=== PATIENT | female | born 1965 | race Caucasian/White ===

== ENCOUNTER 2016-02-28 17:13 | Emergency (ER) | payer OTHER ==
[~2016-02-28] VITALS: Ht 157.5 cm; Wt 121.7 kg
[~2016-02-28 17:13] MED LIST: ACID CONTROL150 MG PO; ALBUTEROL SULF8.5 GM IH; ALDACTONE100 MG PO; ALDACTONE50 MG PO; ATIVAN2 MG PO; ATROVENT 00.5 MG/2.5 IH; B-100 COMPLEX1 EACH PO; BAL B-1001 EACH PO; BENTYL20 MG PO; BIOTIN 5000MCG PO; CARAFATE1 GM PO; DESYREL100 MG PO; DICYCLOMINE HCL10 MG PO; DIFLUCAN150 MG PO; DOXYCYCLINE HY100 MG PO; DOXYCYCLINE MO100 MG PO; DRISDOL50000 UNIT PO; ERGOCALCIF50000 UNIT PO; ESTRACE2 MG PO; ESTRADIOL2 MG PO; FIORICET 50-301 EACH PO; FLUOXETINE HCL40 MG PO; GEMFIBROZIL600 MG PO; K-DUR20 MEQ PO; LEVAQUIN750 MG PO; LEVOFLOXACIN500 MG PO; LEVOTHYROXINE112 MCG PO; LEVOTHYROXINE125 MCG PO; LORAZEPAM1 MG PO; LOZOL2.5 MG PO; MAG-OXIDE400 MG PO; MAGNESIUM400 MG PO; MONODOX100 MG PO; MOTRIN800 MG PO; NASONEX17 GM BOTH NARES; NOVOLOG PE100 UNITS/ SC; PERCOCET 5/31 TABLET PO; PREDNISOLONE AC15 ML BOTH EYES; PREDNISONE20 MG PO; PREDNISONE50 MG PO; PROMETHAZINE HC25 M1 PO; PROZAC40 MG PO; PULMICORT FLE180 MCG IH; ROBITUSSIN AC,T10 ML PO; SUDAFED 12-HOU120 MG PO; SYNTHROID112 MCG PO; TRAZODONE HCL50 MG PO; ULTRAM50 MG PO; VIT B PO; VITAMIN B PO; VITAMIN B-2100 MG PO; VITAMIN D250000 UNIT PO; ZANTAC150 MG PO; ZINC50 M1 PO; ZOFRAN ODT8 MG PO; ZOFRAN4 MG PO; ZOFRAN8 MG PO; [UNRECOGNIZED DRUG - CODE] PO
[2016-02-28 18:04] LABS: HEMATOCRIT 43.4 % (36.0-46.0); MCH 28.6 PG (29.0-34.0); MCHC 33.4 G/DL (30.0-36.0); MCV 85.6 FL (83-99); MEAN PLAT.VOLUME 9.1 uM^3 (9.5-12.4); PLATELET COUNT 275 K/uL (156-360); RBC DIS.WIDTH-CV 13.5 % (11.8-14.6); RBC DIS.WIDTH-SD 41.5 % (39-53); RED BLOOD COUNT 5.07 M/uL (3.80-5.20); WHITE BLOOD COUNT 10.6 K/uL (4.1-10.2)
[2016-02-28] MEDS ORDERED: MONODOX100 MG PO (18:04)
[2016-02-28 18:10] LABS: CHLORIDE 98 mEq/L (99-109); SODIUM 139 mEq/L (136-147)
[2016-02-28 18:13] LABS: GLUCOSE 120 mg/dL (70-99)
[2016-02-28 18:14] LABS: ANION GAP 12 MEQ/L (2-14)
[2016-02-28 18:15] LABS: TOTAL BILIRUBIN 0.4 mg/dL (0.0-1.0)
[2016-02-28 18:16] LABS: ALKALINE PHOSPHATASE 85 IU/L (3-129); GFR ESTIMATE (CALCULATED) > 59 mL/min/
[2016-02-28 18:17] LABS: UREA NITROGEN (BUN) 15 mg/dL (9-23)
[2016-02-28 18:27] LABS: QUANTITATIVE HCG < 4.0 MIU/ML
[2016-02-28 18:52] LABS: LIPASE 23 U/L (1.0-51.0)
[2016-02-28 19:09] LABS: ADD MIUA? YES; BILIRUBIN NEGATIVE; BLOOD NEGATIVE; COLOR YELLOW ((YELLOW)); GLUCOSE (STRIP) NEGATIVE; KETONES TRACE; LEUKOCYTES NEGATIVE; NITRITE NEGATIVE; PROTEIN (STRIP) NEGATIVE; SPECIFIC GRAVITY 1.022 (1.000-1.030); UROBILINOGEN 0.2 MG/DL (0.2-1.0)
[2016-02-28 19:31] LABS: BACTERIA 1+; CASTS NONE SEEN /LPF; CRYSTALS NONE SEEN; EPITHELIAL CELLS 1+; MUCUS NONE SEEN; PATHOLOGICAL CAST NONE SEEN; SMALL ROUND CELL NONE SEEN; UCUL ADDED? NO; WHITE BLOOD CELLS 0-5 /HPF (0-5); YEAST-LIKE CELL NONE SEEN
[2016-02-28] MEDS ORDERED: ZOFRAN ODT4 MG PO (22:43)
[2016-02-28] MEDS ORDERED: TRAMADOL HCL50 MG PO (23:10)
[2016-02-28 23:42] VITALS: BP 105/66
== END 2016-02-28 23:59 | disposition home or self-care (01) ==
LOC: EXP 17:13 → EME 17:13 → EXP 23:59
DX: K52.9 Noninfective gastroenteritis and colitis, unspecified (principal); E78.5 Hyperlipidemia, unspecified; E11.9 Type 2 diabetes mellitus without complications; E03.9 Hypothyroidism, unspecified; Z87.442 Personal history of urinary calculi; Z88.1 Allergy status to other antibiotic agents; Z88.0 Allergy status to penicillin
CPT/HCPCS: 74177; 80053; 81003; 83690; 84702; 85027; 99281; 99285; J1170; J1200; J2405

== ENCOUNTER 2016-03-03 14:03 | Emergency (ER) | payer OTHER ==
[~2016-03-03] VITALS: Ht 157.5 cm; Wt 121.0 kg
[~2016-03-03 14:03] MED LIST changes: +TRAMADOL HCL50 MG PO; +ZOFRAN ODT4 MG PO
[2016-03-03 16:41] LABS: ADD MIUA? YES; BILIRUBIN NEGATIVE; BLOOD NEGATIVE; COLOR YELLOW ((YELLOW)); GLUCOSE (STRIP) NEGATIVE; KETONES NEGATIVE; LEUKOCYTES NEGATIVE; NITRITE NEGATIVE; PROTEIN (STRIP) TRACE; SPECIFIC GRAVITY 1.022 (1.000-1.030); UROBILINOGEN 0.2 MG/DL (0.2-1.0)
[2016-03-03 16:54] LABS: POINT-OF-CARE METER ID UU13113702
[2016-03-03 17:10] LABS: BACTERIA 3+; CASTS NONE SEEN /LPF; CRYSTALS NONE SEEN; EPITHELIAL CELLS 4+; MUCUS NONE SEEN; RED BLOOD CELLS 0-5 /HPF (0-5); UCUL ADDED? NO; WHITE BLOOD CELLS 0-5 /HPF (0-5)
[2016-03-03 17:29] VITALS: BP 118/67
[2016-03-03] MEDS ORDERED: PREDNISONE50 MG PO (17:29)
== END 2016-03-03 17:45 | disposition home or self-care (01) ==
LOC: EME 14:03
PROVIDERS: Physician Assistant
DX: J06.9 Acute upper respiratory infection, unspecified (principal); J44.1 Chronic obstructive pulmonary disease with (acute) exacerbation; E11.9 Type 2 diabetes mellitus without complications; E78.5 Hyperlipidemia, unspecified; Z88.0 Allergy status to penicillin; Z88.6 Allergy status to analgesic agent; Z88.1 Allergy status to other antibiotic agents
CPT/HCPCS: 81003; 82948; 99281; 99284

== ENCOUNTER 2016-04-11 17:28 | Emergency (ER) | payer OTHER ==
[~2016-04-11] VITALS: Ht 157.5 cm; Wt 119.1 kg
[2016-04-11] MEDS ORDERED: BACTRIM,SEPT1 TABLET PO (21:25)
[2016-04-11 21:50] VITALS: BP 124/97
== END 2016-04-11 21:51 | disposition home or self-care (01) ==
LOC: EME 17:28
PROC: 0U9MXZZ Drainage of Vulva, External Approach (ICD-10-PCS; principal; 2016-04-11)
DX: N76.4 Abscess of vulva (principal); E11.9 Type 2 diabetes mellitus without complications; E78.5 Hyperlipidemia, unspecified; I10 Essential (primary) hypertension; Z88.1 Allergy status to other antibiotic agents; Z88.0 Allergy status to penicillin
CPT/HCPCS: 99281; 99284

== ENCOUNTER 2016-05-06 21:56 | Emergency (ER) | payer OTHER ==
[~2016-05-06] VITALS: Ht 160 cm; Wt 119.0 kg
[~2016-05-06 21:56] MED LIST changes: +BACTRIM,SEPT1 TABLET PO
[2016-05-07 00:31] LABS: ADD MIUA? YES; BILIRUBIN NEGATIVE; BLOOD NEGATIVE; COLOR AMBER ((YELLOW)); GLUCOSE (STRIP) NEGATIVE; KETONES NEGATIVE; LEUKOCYTES NEGATIVE; NITRITE NEGATIVE; PROTEIN (STRIP) NEGATIVE; SPECIFIC GRAVITY 1.018 (1.000-1.030); UROBILINOGEN 0.2 MG/DL (0.2-1.0)
[2016-05-07 00:31] LABS: CHLORIDE 97 mEq/L (99-109); POTASSIUM 4.2 mEq/L (3.7-5.4); SODIUM 137 mEq/L (136-147)
[2016-05-07 00:33] LABS: GLUCOSE 126 mg/dL (70-99)
[2016-05-07 00:34] LABS: ANION GAP 10 MEQ/L (2-14)
[2016-05-07 00:35] LABS: TOTAL BILIRUBIN 0.4 mg/dL (0.0-1.0)
[2016-05-07 00:36] LABS: ALKALINE PHOSPHATASE 108 IU/L (3-129)
[2016-05-07 00:37] LABS: INFLUENZA A VIRAL ANTIGEN NEGATIVE; INFLUENZA B VIRAL ANTIGEN POSITIVE
[2016-05-07 00:37] LABS: GFR ESTIMATE (CALCULATED) > 59 mL/min/
[2016-05-07 00:38] LABS: EOSINOPHIL (%) 0.7 % (0-5); EOSINOPHIL COUNT 0.1 K/uL (0-0.3); HEMATOCRIT 42.9 % (36.0-46.0); IMMATURE GRANULOCYTE (%) 0.6 % (0.0-0.7); IMMATURE GRANULOCYTE COUNT 0.1 K/uL; INSTRUMENT ABS NEUTROPHIL CT 7.1 K/uL; LYMPHOCYTE COUNT 2.4 K/uL (1.0-2.8); MCH 28.9 PG (29.0-34.0); MCHC 32.9 G/DL (30.0-36.0); MCV 87.9 FL (83-99); MEAN PLAT.VOLUME 9.5 uM^3 (9.5-12.4); MONOCYTE (%) 6.1 % (3-12); MONOCYTE COUNT 0.6 K/uL (0-0.8); NEUTROPHIL (%) 68.7 % (45-76); NEUTROPHIL COUNT 7.1 K/uL (1.8-6.4); PLATELET COUNT 306 K/uL (156-360); RBC DIS.WIDTH-CV 12.8 % (11.8-14.6); RBC DIS.WIDTH-SD 41.1 % (39-53); RED BLOOD COUNT 4.88 M/uL (3.80-5.20); UREA NITROGEN (BUN) 19 mg/dL (9-23); WHITE BLOOD COUNT 10.3 K/uL (4.1-10.2)
[2016-05-07 00:40] LABS: LIPASE 21 U/L (1.0-51.0)
[2016-05-07 00:48] LABS: QUANTITATIVE HCG < 4.0 MIU/ML
[2016-05-07 01:08] LABS: BACTERIA RARE /HPF; EPITHELIAL CELLS 2+ /HPF; MUCUS NONE SEEN /LPF; RED BLOOD CELLS 0-5 /HPF (0-5); UCUL ADDED? NO; WHITE BLOOD CELLS 0-5 /HPF (0-5)
[2016-05-07 02:03] VITALS: BP 137/83
== END 2016-05-07 02:06 | disposition home or self-care (01) ==
LOC: EME 21:56
PROVIDERS: Physician Assistant
PROC: 0H9AXZZ Drainage of Inguinal Skin, External Approach (ICD-10-PCS; principal; 2016-05-07)
DX: N76.4 Abscess of vulva (principal); J10.1 Influenza due to other identified influenza virus with other respiratory manifestations; R51 Headache; R19.7 Diarrhea, unspecified; H92.01 Otalgia, right ear; E11.9 Type 2 diabetes mellitus without complications; J44.9 Chronic obstructive pulmonary disease, unspecified; J45.909 Unspecified asthma, uncomplicated; I10 Essential (primary) hypertension; E03.9 Hypothyroidism, unspecified; Z79.4 Long term (current) use of insulin; Z88.0 Allergy status to penicillin; Z88.1 Allergy status to other antibiotic agents; Z87.891 Personal history of nicotine dependence
CPT/HCPCS: 71020; 80053; 81003; 83690; 84702; 85025; 87502; 99281; 99285; J2270; J2405; J2765; J7030; S0020

== ENCOUNTER 2016-08-11 22:01 | Emergency (ER) | payer OTHER ==
[~2016-08-11] VITALS: Ht 157.5 cm; Wt 118.8 kg
[2016-08-11] MEDS ORDERED: PREDNISONE20 MG PO (23:42)
[2016-08-11] MEDS ORDERED: LEVAQUIN750 MG PO (23:42)
[2016-08-11 23:53] VITALS: BP 118/67
== END 2016-08-11 23:53 | disposition home or self-care (01) ==
LOC: EME 22:01
DX: J06.9 Acute upper respiratory infection, unspecified (principal); M79.7 Fibromyalgia
CPT/HCPCS: 71020; 99281; 99283; J1100; J1200